=== PATIENT | male | born 1980 | race Caucasian/White ===

== ENCOUNTER 2017-11-26 16:41 | Outpatient (CLI) | payer OTHER ==
--- NOTE | 2017-11-27 09:22 | RAD ---
LEFT KNEE 5 VIEWS: Date: 11/26/17 HISTORY: 37-year-old male with history of left knee pain for 6 months. FINDINGS: No fracture, dislocation, or other significant acute osseous abnormality. If there is clinical concern for internal derangement, consider follow-up MRI for further assessment. IMPRESSION: Unremarkable left knee. POS: [facility]
== END 2017-11-26 16:42 | disposition home or self-care (01) ==
LOC: TBSIIMAG 16:41
PROVIDERS: ATTEND Student in an Organized Health Care Education/Training Program
DX: M25.562 Pain in left knee (principal)